=== PATIENT | female | born 1960 | race Caucasian/White ===

== ENCOUNTER 2023-12-24 03:33 | Inpatient (IN) | payer OTHER ==
[2023-12-24 04:43] LABS: Influenza A by NAA Not Detected (NotDetected); Influenza B by NAA Not Detected (NotDetected); SARS-CoV-2 NAA Rapid Test Not Detected (NotDetected)
[2023-12-24 05:01] LABS: ALT (SGPT) 20 U/L (8-55); AST (SGOT) 22 U/L (5-34); Albumin 3.1 g/dL (3.4-4.8); Alkaline Phosphatase 61 U/L (40-110); Anion Gap 17 mmol/L (10-20); BUN (Urea Nitrogen) 15 mg/dL (9.8-20.1); Bilirubin, Total 0.4 mg/dL (0.2-1.2); Calc. Creatinine Clearance 0 mL/min (70-130); Calcium 8.4 mg/dL (7.8-10.44); Carbon Dioxide 18 mmol/L (23-31); Chloride 100 mmol/L (98-107); Estimated GFR 55; Globulin 3.1 g/dL (2.4-3.5); Glucose 380 mg/dL (80-115); Lipase 7 U/L (8-78); Magnesium 1.3 mg/dL (1.6-2.6); Potassium 4.1 mmol/L (3.5-5.1); Protein, Total 6.2 g/dL (5.8-8.1); Sodium 131 mmol/L (136-145)
[2023-12-24 05:09] LABS: #Basophils 0.08 10x3/uL (0.0-0.2); #Eosinphils 0.01 10x3/uL (0.0-0.5); #Monocytes 1.62 10x3/uL (0.0-1.1); #Neutrophils 19.15 10x3/uL (1.5-8.4); %Basophils 0.4 % (0.0-2.0); %Lymphocytes 3.6 % (18.0-47.0); %Monocytes 7.3 % (0.0-10.0); %Neutrophils 86.7 % (40.0-75.0); Hematocrit 37.2 % (34.9-44.5); Hemoglobin 12.8 g/dL (12.0-15.5); Mean Corpuscular HGB CONC 34.4 g/dL (32.0-36.0); Mean Corpuscular Hemoglobin 29.1 pg (27.0-33.0); Mean Corpuscular Volume 84.5 fL (81.6-98.3); Mean Platelet Volume 10.3 fL (7.4-10.4); Platelet Count 226 10x3/uL (150-450); RBC Distribution Width 13.9 % (11.5-14.5); White Blood Cell (WBC) Count 22.1 10x3/uL (3.5-10.5)
[2023-12-24] MEDS ORDERED: Piperacillin/Tazobactam 4.5 GM VIAL ONE (05:12)
[2023-12-24 05:30] LABS: Troponin I 0.304 ng/mL (< 0.028)
[2023-12-24 05:57] LABS: Bilirubin Neg (Negative); Blood, Urine 25 (Negative); Clarity Clear (Clear); Glucose, Urine (Dipstick) >=1000 mg/dL (Negative); Ketone, Urine Negative (Negative); Leukocyte Negative (Negative); Nitrite Negative (Negative); Protein, Urine (Dipstick) 30 mg/dl (Neg-Trace); Urobilinogen Normal mg/dL (Less than 2)
[2023-12-24] MEDS ORDERED: Calcium Carbonate 500 MG ChewTAB PO PRN (05:59)
[2023-12-24] MEDS ORDERED: Ondansetron PF 4 MG/2 ML Vial IVP PRN (05:59)
[2023-12-24] MEDS ORDERED: Dextrose 5% in Water 1,000 ML IV PRN (05:59)
[2023-12-24] MEDS ORDERED: Dextrose 50% Abboject 50 ML SYRINGE SLOW IVP PRN (05:59)
[2023-12-24] MEDS ORDERED: Glucagon 1 MG/ML KIT IM PRN (05:59)
[2023-12-24] MEDS ORDERED: Guaifenesin DM 100-10/5 ML UDCUP PO PRN (05:59)
[2023-12-24] MEDS ORDERED: Magnesium 2 GM/50 ML BAG (IN WATER) ONE (06:12)
[2023-12-24 06:13] VITALS: BMI 38.0
[2023-12-24 06:17] LABS: RBC/HPF 0-3 HPF (0-3)
[2023-12-24 06:18] LABS: Bacteria/HPF 1+ HPF (None Seen); CAUTI Indications for Culture Fever or rigors; Squamous Epithelial 0-3 HPF (0-3); Transitional Epithelial 0-3 HPF (None Seen); WBC/HPF 0-3 HPF (0-3)
[2023-12-24 06:19] LABS: Urine Culture Reflex No No
[2023-12-24] MEDS: Lactated Ringer's 1,000 ML IV SCH (06:25)
[2023-12-24] MEDS: Magnesium 2 GM/50 ML(in water) 2 GM in Premix 1 BAG IVPB SCH (06:40)
[2023-12-24] MEDS: Insulin Lispro 100 UNIT/ML 10 ML VIAL SC PRN (06:49)
[2023-12-24 07:45] LABS: Critical Call Chem Troponin I NUR.JF4@0743
[2023-12-24] MEDS: glipiZIDE 5 MG TAB PO SCH (08:37)
[2023-12-24] MEDS ORDERED: Metoprolol Tartrate 25 MG TAB ONE (09:52)
[2023-12-24] MEDS ORDERED: Aspirin 81 mg Enteric Coated Tablet ONE (09:52)
[2023-12-24] MEDS ORDERED: LevoFLOXacin 750 mg/D5W 150 ml Premix Bag ONE (10:00)
[2023-12-24] MEDS: Metoprolol Tartrate 25 MG TAB PO SCH (10:01)
[2023-12-24] MEDS: Aspirin 81 mg Enteric Coated Tablet PO SCH (10:01)
[2023-12-24] MEDS: LevoFLOXacin 750 mg/D5W 750 MG in Premix 1 BAG IVPB SCH (10:08)
[2023-12-24 11:37] LABS: Critical Call Chem Troponin I SJOS.OD@1136; Troponin I 0.871 ng/mL (< 0.028)
[2023-12-24] MEDS ORDERED: Acetaminophen 325 MG TAB ONE (13:25)
[2023-12-24] MEDS: Acetaminophen 325 MG TAB PO PRN (13:55)
[2023-12-24] MEDS: Fioricet 325/50/40 mg Tablet PO SCH (20:04)
[2023-12-24] MEDS: Enoxaparin 40 MG (0.4 mL) SYRINGE SC SCH (20:07)
[2023-12-24] MEDS: Atorvastatin Calcium 20 MG TAB PO SCH (20:07)
[2023-12-24] MEDS: Gabapentin 300 MG CAP PO SCH (20:07)
[2023-12-24] MEDS: cefTRIAXone\\ROCEPHIN 2 GM in Sodium Chloride 0.9% 100 ML IVPB SCH (20:08)
[2023-12-24] MEDS: VANCOMYCIN 2 GRAM/400 ML BAG 2 GM in Premix 1 BAG IVPB SCH (20:12)
[2023-12-24] MEDS: Ampicillin 2 GM in Sodium Chloride 0.9% 100 ML IVPB SCH (21:02)
[2023-12-24] MEDS ORDERED: Acyclovir Sodium 500 mg (10 mL) Vial IVPB SCH (22:00)
[2023-12-24] MEDS ORDERED: AMPicillin 1 GM in Sodium Chloride 0.9% 100 ML IVPB SCH (23:59)
[2023-12-25] MEDS: Fioricet 325/50/40 mg Tablet PO PRN (01:08)
[2023-12-25 03:44] LABS: Legionella Urinary Ag Negative (Negative)
[2023-12-25 04:09] LABS: #Basophils 0.05 10x3/uL (0.0-0.2); #Eosinphils 0.05 10x3/uL (0.0-0.5); #Monocytes 1.34 10x3/uL (0.0-1.1); #Neutrophils 15.04 10x3/uL (1.5-8.4); %Basophils 0.3 % (0.0-2.0); %Eosinophils 0.3 % (0.0-6.0); %Monocytes 7.3 % (0.0-10.0); %Neutrophils 82.1 % (40.0-75.0); Hematocrit 32.9 % (34.9-44.5); Hemoglobin 10.9 g/dL (12.0-15.5); Mean Corpuscular HGB CONC 33.1 g/dL (32.0-36.0); Mean Corpuscular Hemoglobin 28.6 pg (27.0-33.0); Mean Corpuscular Volume 86.4 fL (81.6-98.3); Mean Platelet Volume 10.8 fL (7.4-10.4); Platelet Count 212 10x3/uL (150-450); RBC Distribution Width 14.3 % (11.5-14.5); Red Blood Cell (RBC) Count 3.81 10x6/uL (3.90-5.03); White Blood Cell (WBC) Count 18.3 10x3/uL (3.5-10.5)
[2023-12-25 04:17] LABS: Anion Gap 18 mmol/L (10-20); BUN (Urea Nitrogen) 12 mg/dL (9.8-20.1); Calc. Creatinine Clearance 111 mL/min (70-130); Calcium 7.8 mg/dL (7.8-10.44); Carbon Dioxide 18 mmol/L (23-31); Chloride 105 mmol/L (98-107); Estimated GFR 83; Glucose 109 mg/dL (80-115); Magnesium 1.7 mg/dL (1.6-2.6); Potassium 3.5 mmol/L (3.5-5.1); Sodium 137 mmol/L (136-145)
[2023-12-25 04:38] LABS: Vancomycin, Random 17.4 ug/mL (See Comment)
[2023-12-25] MEDS ORDERED: Magnesium Sulfate/D5W 1 GM/100 ML BAG IVPB SCH (06:00)
[2023-12-25] MEDS: Magnesium Sulfate/D5W 1 GM in Premix 1 BAG IVPB SCH (06:18)
[2023-12-25] MEDS: Potassium Chloride 20 MEQ TAB PO SCH (06:19)
[2023-12-25] MEDS: VANCOMYCIN 1.25 GM/250 ML BAG 1.25 GM in Premix 1 BAG IVPB SCH (08:17)
[2023-12-25 08:25] LABS: Prothrombin Time 10.7 sec (9.5-12.1)
[2023-12-25] MEDS ORDERED: Iopamidol 300 61% 100 ML VIAL FS ONE (09:20)
[2023-12-25 10:39] VITALS: BMI 38.0
[2023-12-25] MEDS ORDERED: Sodium Bicarbonate 2.5 MEQ/5 ML SDV ONE (11:22)
[2023-12-25] MEDS ORDERED: Lidocaine 1% PF 5 ML VIAL ONE (11:22)
[2023-12-25 13:45] LABS: CSF, Protein 15.6 mg/dL (15-40)
[2023-12-25 14:06] LABS: CSF Source CSF; Clarity Clear (Clear); Tube # 4
[2023-12-25 14:08] LABS: CSF RBC Count - Manual 2 /cu.mm (None Seen); CSF WBC/NonHematics Count-Man 1 /cu.mm (0-5)
[2023-12-25] MEDS: Cefepime 2 GM in Sodium Chloride 0.9% 100 ML IVPB SCH (16:59)
[2023-12-25 17:20] LABS: Reference Lab Name LABCORP
[2023-12-25] MEDS ORDERED: Vancomycin 1.5 GRAM/300 ML BAG 1.5 GM in Premix 1 BAG IVPB SCH (21:00)
[2023-12-26] MEDS: Nitroglycerin 2% Ointment 1 INCH/1 GM Packet TOP SCH (02:07)
[2023-12-26] MEDS: Furosemide 40 MG (4 mL) VIAL SLOW IVP SCH (02:07)
[2023-12-26 03:30] LABS: Critical Call Chem Troponin I NUR.TL5@0330; Troponin I 0.525 ng/mL (< 0.028)
[2023-12-26] MEDS: Potassium Chloride 20 MEQ TAB PO SCH (06:08)
[2023-12-26] MEDS: Magnesium Oxide 400 MG TAB PO SCH (09:00)
[2023-12-26] MEDS: Furosemide 20 MG (2 mL) VIAL SLOW IVP SCH (09:00)
[2023-12-26 09:20] LABS: RSV by NAA Not Detected (NotDetected)
[2023-12-26] MEDS: Ciprofloxacin 500 MG TAB PO SCH ×2 (09:21→19:51)
[2023-12-27 09:08] LABS: #Basophils 0.04 10x3/uL (0.0-0.2); #Eosinphils 0.27 10x3/uL (0.0-0.5); #Monocytes 1.02 10x3/uL (0.0-1.1); %Basophils 0.4 % (0.0-2.0); %Eosinophils 2.8 % (0.0-6.0); %Lymphocytes 23.6 % (18.0-47.0); %Monocytes 10.6 % (0.0-10.0); %Neutrophils 61.4 % (40.0-75.0); Hematocrit 33.7 % (34.9-44.5); Hemoglobin 11.2 g/dL (12.0-15.5); Mean Corpuscular HGB CONC 33.2 g/dL (32.0-36.0); Mean Corpuscular Hemoglobin 28.4 pg (27.0-33.0); Mean Corpuscular Volume 85.5 fL (81.6-98.3); Mean Platelet Volume 9.3 fL (7.4-10.4); Platelet Count 248 10x3/uL (150-450); RBC Distribution Width 14.4 % (11.5-14.5); Red Blood Cell (RBC) Count 3.94 10x6/uL (3.90-5.03); White Blood Cell (WBC) Count 9.6 10x3/uL (3.5-10.5)
[2023-12-27] MEDS: Losartan 25 MG TAB PO SCH (17:38)
[2023-12-27] MEDS: Metoprolol Tartrate 25 MG TAB PO SCH ×2 (17:38→20:56)
[2023-12-28 08:29] VITALS: BP 168/95; TEMP 98.2
[2023-12-28] MEDS: Losartan 25 MG TAB PO SCH (08:31)
[2023-12-28] MEDS ORDERED: Losartan 25 MG TAB PO SCH (21:00)
== END 2023-12-28 10:52 | disposition home or self-care (01) | DRG 871 ==
LOC: CSHERS 03:33 → CSHERHOLD 06:08 → CSHTELE 16:09
PROVIDERS: ADMIT Student in an Organized Health Care Education/Training Program; ATTEND Family Medicine
DX: A41.59 Other Gram-negative sepsis (principal); I21.A1 Myocardial infarction type 2; N12 Tubulo-interstitial nephritis, not specified as acute or chronic; E87.20 Acidosis, unspecified; E87.1 Hypo-osmolality and hyponatremia; E11.40 Type 2 diabetes mellitus with diabetic neuropathy, unspecified; I25.10 Atherosclerotic heart disease of native coronary artery without angina pectoris; E78.5 Hyperlipidemia, unspecified; I10 Essential (primary) hypertension; E86.0 Dehydration; K21.9 Gastro-esophageal reflux disease without esophagitis; E28.2 Polycystic ovarian syndrome; E66.9 Obesity, unspecified; M19.90 Unspecified osteoarthritis, unspecified site; E83.42 Hypomagnesemia; Z79.84 Long term (current) use of oral hypoglycemic drugs; Z79.82 Long term (current) use of aspirin; Z79.899 Other long term (current) drug therapy; Z95.5 Presence of coronary angioplasty implant and graft; Z88.8 Allergy status to other drugs, medicaments and biological substances; Z90.710 Acquired absence of both cervix and uterus; Z68.38 Body mass index [BMI] 38.0-38.9, adult; B96.89 Other specified bacterial agents as the cause of diseases classified elsewhere
CPT/HCPCS: 0241U; 36415; 36416; 51701; 62270; 70450; 71045; 74177; 80048; 80053; 80202; 81001; 82010; 82945; 83605; 83690; 83735; 83880; 84145; 84157; 84484; 85025; 85610; 86140; 87040; 87077; 87086; 87149; 87186; 87899; 89051; 93005; 93306; 96361; 96374; J0133; J0290; J0692; J0696; J1650; J1815; J1940; J1956; J2543; J3370; J3475; J7120; Q9967